=== PATIENT | female | born 1940 | race Caucasian/White ===

== ENCOUNTER 2021-07-09 16:53 | Emergency (ER) | payer MEDICARE ==
[~2021-07-09 16:53] MED LIST: ASPIRIN EC81 MG PO; BACLOFEN 10MG T10 MG PO; CALCIUM 600 +1 EAC7 PO; CARAFATE1 GM PO; CLARITIN10 MG PO; COUMADIN5 MG PO; COUMADIN6 MG PO; DIOVAN320 MG PO; DOXYCYCLINE HY100 MG PO; EFFEXOR XR75 MG PO; FLONASE ALLER15.8 ML; IRON325 M1 PO; LASIX20 MG PO; LASIX40 MG PO; MICRO-K10 MEQ PO; MIRALAX17 GM PO; NORCO 5-325 TA1 EAC1 PO; NORCO 5-325 TA1 EACH PO; NORVASC 10MG TA10 MG PO; ONE DAILY ESSE1 EACH PO; OS-CAL500 MG PO; PERCOCET 5-3251 EACH PO; PRAVACHOL80 MG PO; PROTONIX 40MG T40 MG PO; SYNTHROID175 MCG PO; SYNTHROID200 MCG PO; TEARS AGAIN15 ML OU; TOPROL XL 25MG25 MG PO; TRIAMTERENE-HC1 EAC1 PO; VICODIN 10/3251 EACH PO; VITAMIN D400 UNI2 PO; VOLTAREN100 GM TOP; ZOFRAN4 MG PO; ZOLOFT100 MG PO; ZYRTEC10 MG PO; [UNRECOGNIZED DRUG - OTHER] PO
== END 2021-07-09 19:40 | disposition home or self-care (01) ==
LOC: FER 16:53
DX: S61.411A Laceration without foreign body of right hand, initial encounter (principal); I10 Essential (primary) hypertension; Z23 Encounter for immunization; Z88.5 Allergy status to narcotic agent; Z88.6 Allergy status to analgesic agent; Z88.8 Allergy status to other drugs, medicaments and biological substances; W23.0XXA Caught, crushed, jammed, or pinched between moving objects, initial encounter; Y92.009 Unspecified place in unspecified non-institutional (private) residence as the place of occurrence of the external cause
CPT/HCPCS: 90471; 90714

== ENCOUNTER 2021-07-12 11:32 | Emergency (ER) | payer MEDICARE ==
[2021-07-12] MEDS ORDERED: KEFLEX250 MG PO (12:18)
== END 2021-07-12 12:32 | disposition home or self-care (01) ==
LOC: FER 11:32
DX: S61.411D Laceration without foreign body of right hand, subsequent encounter (principal); L03.113 Cellulitis of right upper limb; I10 Essential (primary) hypertension; Z79.01 Long term (current) use of anticoagulants; Z88.6 Allergy status to analgesic agent; W45.0XXD Nail entering through skin, subsequent encounter
CPT/HCPCS: 99282

== ENCOUNTER 2021-08-13 12:57 | Emergency (ER) | payer MEDICARE ==
[~2021-08-13 12:57] MED LIST changes: +KEFLEX250 MG PO
[2021-08-13 13:38] LABS: BASOPHIL 0.3 % (0-2); EOSINOPHIL 2.1 % (0-7); HCT 36.5 % (37.0-47.0); HGB 11.6 g/dl (12.5-16.0); LYMPHOCYTE 18.1 % (15-48); MCH 30.5 pg (25.0-31.0); MCHC 31.8 g/dL (32.0-36.0); MCV 96.1 fL (78.0-100.0); MONOCYTE 9.9 % (0-12); MPV 11.9 fL (6.0-9.5); NEUTROPHIL 69.4 % (41-80); NRBC 0; PLT 174 K/uL (150-400); RDW 13.2 % (11.5-14.0); WBC 6.1 K/uL (4.0-10.5)
[2021-08-13 13:45] LABS: INR 1.25 (0.9-1.2); PROTHROMBIN TIME 15.3 SECONDS (11.9-13.9)
== END 2021-08-13 14:41 | disposition home or self-care (01) ==
LOC: FER 12:57
PROVIDERS: Emergency Medicine
DX: R53.83 Other fatigue (principal); R79.1 Abnormal coagulation profile; I10 Essential (primary) hypertension; Z71.1 Person with feared health complaint in whom no diagnosis is made; Z88.5 Allergy status to narcotic agent; Z88.6 Allergy status to analgesic agent; Z88.8 Allergy status to other drugs, medicaments and biological substances
CPT/HCPCS: 36415; 85025; 85610; 99283